=== PATIENT | female | born 1990 | race African-American/Black ===

== ENCOUNTER 2020-02-20 00:35 | Emergency (ER) | payer OTHER, MEDICAID ==
[~2020-02-20] VITALS: Ht 165.1 cm; Wt 59.0 kg
[2020-02-20] MEDS ORDERED: ACETAMINOPHEN 500MG TABLET PO ONE (01:15)
[2020-02-20 01:52] VITALS: BP 115/69
== END 2020-02-20 01:54 | disposition home or self-care (01) ==
LOC: ER 00:35
DX: M79.644 Pain in right finger(s) (principal); Z32.02 Encounter for pregnancy test, result negative
CPT/HCPCS: 73130; 99283